=== PATIENT | male | born 1950 | race African-American/Black ===

== ENCOUNTER 2016-08-10 12:09 | Emergency (ER) | payer MEDICARE ==
[~2016-08-10 12:09] MED LIST: ALEVE220 M3 PO; ASPIRIN81 MG PO; CHANTIX1 MG PO; ENALAPRIL-HCTZ1 TAB PO; FLEXERIL10 MG PO; HYDROCODON-ACE1 EAC7 PO; METHOCARBAMOL750 MG PO; NAPROSYN500 MG PO; NO MEDICATIONS; NORCO 5/3251 TA1 PO; NORCO 5/3251 TAB PO; SIMVASTATIN10 MG PO; SIMVASTATIN40 MG PO; TAMSULOSIN HCL0.4 MG PO; ZOFRAN ODT4 MG/UDTAB PO
[2016-08-10] MEDS ORDERED: FLOMAX0.4 M1 PO (12:44)
[2016-08-10] MEDS ORDERED: CHANTIX0.5 MG/TAB PO (12:44)
[2016-08-10] MEDS ORDERED: TOPAMAX25 M3 PO (12:44)
[2016-08-10] MEDS ORDERED: LOVASTATIN20 M2 PO (12:44)
[2016-08-10] MEDS ORDERED: NORVASC5 M2 PO (12:45)
[2016-08-10] MEDS ORDERED: LEXAPRO10 M2 PO (12:45)
[2016-08-10] MEDS ORDERED: MELOXICAM7.5 M1 PO (12:45)
[2016-08-10] MEDS ORDERED: OMEPRAZOLE20 M4 PO (12:46)
[2016-08-10] MEDS ORDERED: VITAMIN D (12:47)
[2016-08-10] MEDS ORDERED: NORCO 5/3251 TAB PO (12:51)
== END 2016-08-10 13:00 ==
LOC: EDMED 12:09
DX: S43.422A Sprain of left rotator cuff capsule, initial encounter (principal); M51.9 Unspecified thoracic, thoracolumbar and lumbosacral intervertebral disc disorder; W10.9XXA Fall (on) (from) unspecified stairs and steps, initial encounter; Y92.019 Unspecified place in single-family (private) house as the place of occurrence of the external cause